=== PATIENT | male | born 1970 | race Caucasian/White ===

== ENCOUNTER 2022-02-24 15:41 | Inpatient (IN) | payer BC, MEDICAID ==
[~2022-02-24] VITALS: Ht 170.2 cm; Wt 76.4 kg
[2022-02-24] MEDS ORDERED: ONDANSETRON HCL 4MG/2ML INJ IV STA (15:58)
[2022-02-24] MEDS ORDERED: GLUCAGON,HUMAN RECOMBINANT 1MG/VIAL IV ONE (16:00)
[2022-02-24] MEDS ORDERED: SODIUM CHLORIDE 0.9% 1,000 ML IV ONE (16:00)
[2022-02-24] MEDS ORDERED: KETOROLAC 15MG/ML VIAL IV ONE (16:15)
[2022-02-24 16:42] LABS: CHLORIDE 107 mEq/L (98-107)
[2022-02-24 16:44] LABS: BASOPHILS % 0.4 % (0.0-2.0); HEMATOCRIT. 37.3 % (42.0-52.0); HEMOGLOBIN. 12.5 g/dL (14.0-18.0); LYMPHOCYTES % 14.4 % (20.0-50.0); MEAN CORPUSCULAR HEMOGLOBIN 28.7 pg (28.0-32.0); MEAN CORPUSCULAR VOLUME 85.7 fL (80.0-94.0); MEAN PLATELET VOLUME 8.5 fl (7.4-10.4); MONOCYTES % 6.9 % (2.0-8.0); NEUTROPHILS % 75.3 % (40.0-76.0); PLATELET 215 x1000/uL (130-400); RED BLOOD CELL COUNT 4.35 mill/uL (4.7-6.1); RED CELL DISTRIBUTION WIDTH 13.4 % (11.6-14.6)
[2022-02-24] MEDS ORDERED: VANCOMYCIN 1G PREMIX 200 ML IV ONE (18:30)
[2022-02-24] MEDS ORDERED: PIPERACILLIN/TAZ 3.375G PREMIX 50 ML IV ONE (18:30)
[2022-02-24] MEDS ORDERED: SODIUM CHLORIDE 0.9% 1000ML BAG (SEPSIS BOLUS) IV ONE (18:30)
[2022-02-24 19:47] LABS: CLARITY URINE CLEAR (CLEAR); COLOR URINE YELLOW (YELLOW); KETONES URINE NEGATIVE (NEGATIVE); LEUKOCYTE ESTERASE URINE 1+ (NEGATIVE); NITRITE URINE NEGATIVE (NEGATIVE); OCCULT BLOOD URINE NEGATIVE (NEGATIVE); PH URINE 6.5 (4.5-8.0); PROTEIN URINE NEGATIVE (NEGATIVE); SPECIFIC GRAVITY URINE 1.008 (1.005-1.030); UROBILINOGEN URINE 0.2 E.U./dL (0.2-1.0)
[2022-02-24] MEDS ORDERED: KCL 20MEQ/100ML PREMIX 100 ML IV NR (21:30)
[2022-02-24] MEDS ORDERED: HYDRALAZINE 20MG/ML VIAL IV PRN (21:45)
[2022-02-25] VITALS (7 sets, daily range): BP systolic 124–149; BP diastolic 93–106
[2022-02-25] MEDS ORDERED: LABE300T3 PO (00:17)
[2022-02-25] MEDS ORDERED: CLON0.3T PO (00:17)
[2022-02-25] MEDS ORDERED: BACL-141 PO (00:17)
[2022-02-25] MEDS ORDERED: AMLO10TA80 PO (00:17)
[2022-02-25] MEDS ORDERED: ASPI81TA43 PO (00:17)
[2022-02-25] MEDS ORDERED: HYDR-4134 PO (00:17)
[2022-02-25] MEDS ORDERED: RISP1TAB97 PO (00:17)
[2022-02-25] MEDS ORDERED: MAGNESIUM 2 G PREMIX 50 ML IV NR (02:00)
[2022-02-25] MEDS: PIPERACILLIN/TAZOBACTAM 3.375 G in DEXTROSE 5% WATER 50 ML IV SCH ×3 (05:19→22:08)
[2022-02-25 06:20] LABS: BASOPHILS % 0.3 % (0.0-2.0); EOSINOPHILS % 3.5 % (0.0-5.0); HEMATOCRIT. 34.9 % (42.0-52.0); LYMPHOCYTES % 10.5 % (20.0-50.0); MEAN CORPUSCULAR HEMOGLOBIN 29.2 pg (28.0-32.0); MEAN CORPUSCULAR VOLUME 84.9 fL (80.0-94.0); MEAN PLATELET VOLUME 9.1 fl (7.4-10.4); MONOCYTES % 7.3 % (2.0-8.0); NEUTROPHILS % 78.4 % (40.0-76.0); PLATELET 197 x1000/uL (130-400); RED BLOOD CELL COUNT 4.12 mill/uL (4.7-6.1); RED CELL DISTRIBUTION WIDTH 13.1 % (11.6-14.6)
[2022-02-25] MEDS ORDERED: TRAMADOL 50MG TABLET PO PRN (07:15)
[2022-02-25 07:47] LABS: CHLORIDE 109 mEq/L (98-107)
[2022-02-25 07:58] LABS: HDL CHOLESTEROL 34 mg/dL (40-59); LDL CHOLESTEROL 67 mg/dL (5-100)
[2022-02-25] MEDS ORDERED: NALOXONE HCL 0.4MG/ML VIAL IV PRN (08:15)
[2022-02-25] MEDS: FAMOTIDINE 20MG/2ML VIAL IV SCH (09:01)
[2022-02-25] MEDS: ENOXAPARIN 40MG/0.4ML SYR SUBCUT SCH (09:01)
[2022-02-25] MEDS: POTASSIUM-SODIUM PHOSPHATE POWDER PACKET PEG SCH ×2 (09:01→17:13)
[2022-02-25] MEDS ORDERED: BARIUM SULFATE 176 GM SUSP.RECON ONE (13:16)
[2022-02-25] MEDS: AMLODIPINE 10MG TABLET PO SCH (13:21)
[2022-02-25] MEDS: CLONIDINE 0.3MG TABLET PO SCH ×2 (13:21→17:13)
[2022-02-25] MEDS: LABETALOL HCL 100MG TABLET PO SCH (13:21)
[2022-02-25] MEDS: BACLOFEN 10MG TABLET PO SCH ×2 (13:22→17:12)
[2022-02-25] MEDS ORDERED: ONDANSETRON HCL 4MG/2ML INJ IV PRN (14:45)
[2022-02-25] MEDS ORDERED: ACETAMINOPHEN 650MG/20.3ML UDC PO PRN (14:45)
[2022-02-25] MEDS: HYDRALAZINE HCL 25MG TABLET PO SCH ×2 (17:12→21:04)
[2022-02-25] MEDS: ASPIRIN 81MG TABLET PO SCH (17:13)
[2022-02-25] MEDS ORDERED: RISPERIDONE 1MG TABLET PO SCH (21:00)
[2022-02-26] VITALS (8 sets, daily range): BP systolic 109–154; BP diastolic 88–112
[2022-02-26] MEDS: PIPERACILLIN/TAZOBACTAM 3.375 G in DEXTROSE 5% WATER 50 ML IV SCH ×2 (05:05→14:00)
[2022-02-26] MEDS: HYDRALAZINE HCL 25MG TABLET PO SCH ×2 (05:05→14:00)
[2022-02-26] MEDS ORDERED: VANCOMYCIN 1.25GM PMX (XELLIA) 250 ML IV SCH (06:00)
[2022-02-26 06:40] LABS: BASOPHILS % 0.5 % (0.0-2.0); EOSINOPHILS % 4.7 % (0.0-5.0); HEMATOCRIT. 39.1 % (42.0-52.0); HEMOGLOBIN. 13.8 g/dL (14.0-18.0); LYMPHOCYTES % 19.1 % (20.0-50.0); MEAN CORPUSCULAR HEMOGLOBIN 29.6 pg (28.0-32.0); MEAN CORPUSCULAR VOLUME 83.7 fL (80.0-94.0); MEAN PLATELET VOLUME 9.1 fl (7.4-10.4); MONOCYTES % 7.4 % (2.0-8.0); NEUTROPHILS % 68.3 % (40.0-76.0); PLATELET 205 x1000/uL (130-400); RED BLOOD CELL COUNT 4.67 mill/uL (4.7-6.1); RED CELL DISTRIBUTION WIDTH 13.1 % (11.6-14.6)
[2022-02-26 07:14] LABS: CHLORIDE 102 mEq/L (98-107); PHOSPHORUS 2.1 mg/dL (2.5-4.9)
[2022-02-26] MEDS ORDERED: POTASSIUM CHLORIDE 20MEQ TABLET SR PO NR (07:45)
[2022-02-26] MEDS: ASPIRIN 81MG TABLET PO SCH (08:47)
[2022-02-26] MEDS: BACLOFEN 10MG TABLET PO SCH ×3 (08:48→17:35)
[2022-02-26] MEDS: LABETALOL HCL 100MG TABLET PO SCH (08:48)
[2022-02-26] MEDS: AMLODIPINE 10MG TABLET PO SCH (08:51)
[2022-02-26] MEDS: FAMOTIDINE 20MG/2ML VIAL IV SCH (08:51)
[2022-02-26] MEDS: CLONIDINE 0.3MG TABLET PO SCH ×3 (08:51→17:36)
[2022-02-26] MEDS: ENOXAPARIN 40MG/0.4ML SYR SUBCUT SCH (08:52)
[2022-02-26] MEDS ORDERED: MAGNESIUM 1 G PREMIX 100 ML IV NR (09:30)
[2022-02-26] MEDS: POTASSIUM-SODIUM PHOSPHATE POWDER PACKET PEG SCH ×2 (09:32→17:00)
[2022-02-26] MEDS ORDERED: VANCOMYCIN 750MG PMX (XELLIA) 150 ML IV SCH (18:00)
== END 2022-02-26 20:10 | disposition home or self-care (01) | DRG 178 ==
LOC: ER 15:41 → 7WST 19:40 → EDBEDREQ 19:41 → EDBEDREQTM 19:41
PROVIDERS: ADMIT Hospitalist; ATTEND Hospitalist
DX: J69.0 Pneumonitis due to inhalation of food and vomit (principal); E87.1 Hypo-osmolality and hyponatremia; N17.9 Acute kidney failure, unspecified; I69.354 Hemiplegia and hemiparesis following cerebral infarction affecting left non-dominant side; T18.128A Food in esophagus causing other injury, initial encounter; E87.6 Hypokalemia; E83.39 Other disorders of phosphorus metabolism; D64.9 Anemia, unspecified; D72.829 Elevated white blood cell count, unspecified; E83.42 Hypomagnesemia; Z79.82 Long term (current) use of aspirin; Z93.1 Gastrostomy status; Z87.442 Personal history of urinary calculi; Z79.899 Other long term (current) drug therapy; X58.XXXA Exposure to other specified factors, initial encounter; Y93.89 Activity, other specified; Y92.89 Other specified places as the place of occurrence of the external cause; Y99.8 Other external cause status
CPT/HCPCS: 36415; 71045; 74230; 80053; 80061; 81003; 83036; 83605; 83735; 83880; 84100; 84132; 84484; 85025; 92610; 92611; 93005; 97162; 97166; 97535; 99285; C1893; J1610; J1650; J1885; J2405; J2543; J3370; J3475; J3480; J3490; J7030; J7060